=== PATIENT | male | born 1950 | race Caucasian/White ===

== ENCOUNTER 2019-06-27 09:58 | Emergency (ER) | payer OTHER ==
[~2019-06-27] VITALS: Ht 170.2 cm; Wt 58.5 kg
[2019-06-27 10:03] VITALS: BP 165/99; Ht 170.2 cm; Wt 58.5 kg
== END 2019-06-27 11:23 | disposition home or self-care (01) ==
LOC: ED 09:58
DX: B02.9 Zoster without complications (principal)
CPT/HCPCS: J1885; J7512